=== PATIENT | male | born 2000 | race Caucasian/White ===

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

== ENCOUNTER 2020-01-19 04:20 | Emergency (ER) | payer OTHER ==
[~2020-01-19] VITALS: Ht 167.6 cm; Wt 65.9 kg
[~2020-01-19 04:20] MED LIST changes: +LOMOTIL 0.025 M1 TAB PO; +ULTRAM 50MG TAB50 MG PO
[2020-01-19 04:24] VITALS: TEMP 97.9
[2020-01-19 04:52] LABS: INR 2.3 (0.8-3.0)
[2020-01-19 05:02] LABS: ALANINE AMINOTRANSFERASE 18 U/L (21-72); ALBUMIN 5.3 gm/dL (3.5-5.0); ALKALINE PHOSPHATASE 60 U/L (50-136); ANION GAP 17 mmol/L (7-16); AST,SGOT 29 U/L (15-37); BILIRUBIN,TOTAL 0.5 mg/dL (0.0-1.0); BLOOD UREA NITROGEN 22 mg/dL (9-20); CALCIUM 9.5 mg/dL (8.4-10.2); CARBON DIOXIDE 22 mmol/L (22-30); CHLORIDE 102 mmol/L (98-107); CREATININE, serum 0.59 (0.66-1.25); GLUCOSE 138 mg/dL (74-106); SODIUM 141 mmol/L (137-145); TOTAL PROTEIN 8.2 gm/dL (6.4-8.2)
[2020-01-19 05:12] LABS: HEMOGLOBIN 15.3 g/dl (13.5-18.0); MEAN CELL VOLUME 87 fl (80.0-100.0); MEAN CORPUSCULAR HEMOGLOBIN 30 pg (27.0-31.0); MEAN CORPUSCULAR HGB CONC 35 g/dl (33.0-37.0); PLATELET COUNT 274 K/mm3 (130-400); RED BLOOD COUNT 5.05 M/mm3 (4.20-5.60); REDCELL DISTRIBUTION WIDTH-CV 12.2 % (11.5-14.5)
[2020-01-19 05:13] LABS: TROPONIN-I < 0.012 ng/mL (0.000-0.035)
[2020-01-19 05:32] LABS: LYMPHOCYTE 61 % (20.0-51.0); NEUTROPHILS 31 % (42.0-75.2)
[2020-01-19 08:42] VITALS: BP 101/46; PULSE 80
== END 2020-01-19 08:44 | disposition home or self-care (01) ==
LOC: COL.ER 04:20
PROVIDERS: Emergency Medicine
DX: R07.89 Other chest pain (principal); F12.10 Cannabis abuse, uncomplicated; F17.290 Nicotine dependence, other tobacco product, uncomplicated; Z95.0 Presence of cardiac pacemaker; Z79.01 Long term (current) use of anticoagulants; Z86.79 Personal history of other diseases of the circulatory system
CPT/HCPCS: J2060; J3010; J7030